=== PATIENT | male | born 1970 | race Two or more races ===

== ENCOUNTER 2018-09-02 19:27 | Emergency (ER) | payer OTHER ==
[~2018-09-02] VITALS: Ht 165.1 cm; Wt 63.5 kg
== END 2018-09-03 06:52 | disposition home or self-care (01) ==
LOC: ER 19:27 → CPU-OBS 20:09 → ER 20:09
DX: R07.89 Other chest pain (principal); K21.9 Gastro-esophageal reflux disease without esophagitis
CPT/HCPCS: G0378; G0379; 93005